=== PATIENT | female | born 1930 | race Caucasian/White ===

== ENCOUNTER 2018-02-14 14:36 | Inpatient (IN) | payer MEDICARE, BC ==
[~2018-02-14] VITALS: Ht 160 cm; Wt 67.6 kg
[~2018-02-14 14:36] MED LIST: AMITRIPTYLINE H25 M1 PO; AMOXICILLIN 8751 TAB PO; ASPIRIN 81M81 MG/TA2 PO; CALTRATE-600 W600 MG PO; DITROPAN 5MG TAB5 MG PO; ELAVIL10 MG PO; FISH OIL 1000MG1 CAP PO; FORTICAL NS; FORTICAL200 IU/ACT NS; GLUCOSAMINE PO; LEVOXYL0.075 MG PO; NATURAL E400 IU PO; NEURONTIN300 MG/CAP PO; NEXIUM 40MG40 MG PO; NEXIUM40 MG PO; NORCO 325 MG-51 TAB PO; OSCAL 500 TAB500 MG PO; PRIL40 PO; RECLAST5 MG/100 M IV; REGLAN 10MG10 MG/TAB PO; STOOL SOFTENER100 M2 PO; SYNTHROID 0.0.025 MG PO; TOPROL XL 50MG50 MG PO; TYLENOL 8 HR PO; VITAMIN B 6 PO; VITAMIN B-6100 MG PO; VITAMIN D1000 IU PO; VITAMIN E800 I1 PO; [UNRECOGNIZED DRUG - OTHER] PO
[2018-02-14 14:50] VITALS: BP 134/73; PULSE 72; TEMP 97.8
[2018-02-14] MEDS ORDERED: VITAMIN C500 MG PO (15:21)
[2018-02-14] MEDS ORDERED: DULCOLAX STOOL100 MG PO (15:22)
[2018-02-14 17:25] VITALS: BP 131/73; PULSE 81; TEMP 97.9
[2018-02-14 19:49] VITALS: BP 157/82; PULSE 72; TEMP 98
[2018-02-15] VITALS (10 sets, daily range): BP systolic 91–160; BP diastolic 43–92; PULSE 61–85; TEMP 97.4–98
[2018-02-15 05:59] LABS: BASO % 0.7 % (0.0-2.0); EOS # 0.1 (0.0-0.7); EOS % 1.1 % (0-4.0); GRAN # 2.2 (1.4-6.5); GRAN % 50.2 % (42.2-75.2); HEMOGLOBIN 12.2 g/dl (12.5-16.0); LYMPH # 1.7 (1.2-3.4); LYMPH % 37.2 % (20.0-51.0); MEAN CELL VOLUME 94 fl (80.0-100.0); MEAN CORPUSCULAR HEMOGLOBIN 31 pg (27.0-31.0); MEAN CORPUSCULAR HGB CONC 34 g/dl (33.0-37.0); MEAN PLATELET VOLUME 10.5 fl (7.4-10.4); MONO # 0.5 (0.1-0.6); MONO % 10.6 % (1.7-9.3); PLATELET COUNT 224 K/mm3 (130-400); RED BLOOD COUNT 3.88 M/mm3 (4.10-5.30); REDCELL DISTRIBUTION WIDTH-CV 12.7 % (11.5-14.5)
[2018-02-15 06:00] LABS: HEMATOCRIT 36.4 % (37.0-47.0)
[2018-02-15 06:12] LABS: ALBUMIN 2.6 gm/dL (3.5-5.0); BILIRUBIN,TOTAL 0.3 mg/dL (0.0-1.0); CALCIUM 8.4 mg/dL (8.4-10.2); CREATININE, serum 0.59 mg/dL (0.52-1.25); POTASSIUM 3.4 mmol/L (3.4-5.0)
[2018-02-16 03:43] VITALS: BP 142/70; PULSE 86; TEMP 98
[2018-02-16 06:45] LABS: HEMATOCRIT 37.9 % (37.0-47.0); HEMOGLOBIN 12.8 g/dl (12.5-16.0); MEAN CELL VOLUME 94 fl (80.0-100.0); MEAN CORPUSCULAR HEMOGLOBIN 32 pg (27.0-31.0); MEAN CORPUSCULAR HGB CONC 34 g/dl (33.0-37.0); MEAN PLATELET VOLUME 11.2 fl (7.4-10.4); PLATELET COUNT 235 K/mm3 (130-400); RED BLOOD COUNT 4.03 M/mm3 (4.10-5.30); REDCELL DISTRIBUTION WIDTH-CV 12.9 % (11.5-14.5)
[2018-02-16 07:19] VITALS: BP 123/72; PULSE 87; TEMP 98.7
[2018-02-16 08:07] LABS: CREATININE, serum 0.61 mg/dL (0.52-1.25); POTASSIUM 3.1 mmol/L (3.4-5.0)
[2018-02-16 12:07] VITALS: BP 153/86; PULSE 87
[2018-02-16 15:39] VITALS: BP 144/73; PULSE 89; TEMP 98.2
[2018-02-16 23:19] VITALS: BP 164/77; PULSE 85; TEMP 98.9
[2018-02-17 04:24] VITALS: BP 155/72; PULSE 74; TEMP 97.7
[2018-02-17 09:00] VITALS: BP 166/81; PULSE 79; TEMP 97.4
[2018-02-17 13:00] VITALS: BP 152/87; PULSE 74; TEMP 97.7
[2018-02-17 16:55] VITALS: BP 167/81; PULSE 76; TEMP 97.5
[2018-02-17 20:00] VITALS: BP 167/76; PULSE 77; TEMP 97.8
[2018-02-18] VITALS: BP 154/83; PULSE 81; TEMP 97.7
[2018-02-18 04:00] VITALS: BP 141/76; PULSE 86; TEMP 98.1
[2018-02-18 08:39] VITALS: BP 153/86; PULSE 79; TEMP 97.4
[2018-02-18 13:00] VITALS: BP 154/80; PULSE 79; TEMP 97.6
[2018-02-18 16:42] VITALS: BP 155/83; PULSE 83; TEMP 97.7
[2018-02-18 20:30] VITALS: BP 164/79; PULSE 82; TEMP 98.6
[2018-02-19 04:24] VITALS: BP 177/82; PULSE 78; TEMP 98.1
[2018-02-19 08:28] VITALS: BP 165/80; PULSE 81; TEMP 98
[2018-02-19 12:31] VITALS: BP 156/86; PULSE 72; TEMP 97.4
[2018-02-19 16:25] VITALS: BP 176/86; PULSE 77; TEMP 97.6
[2018-02-20 01:30] VITALS: BP 158/88; PULSE 85; TEMP 98.1
[2018-02-20 03:43] VITALS: BP 160/85; PULSE 86; TEMP 97.9
[2018-02-20 07:45] VITALS: BP 165/88; PULSE 95; TEMP 97.8
== END 2018-02-20 10:08 | disposition swing bed (61) | DRG 330 ==
LOC: SURG 14:36 → MEDICAL 14:36 → SURG 02-15 15:53
PROVIDERS: Surgery
PROC: 0DQ80ZZ Repair Small Intestine, Open Approach (ICD-10-PCS; 2018-02-15)
PROC: 0WJP0ZZ Inspection of Gastrointestinal Tract, Open Approach (ICD-10-PCS; 2018-02-15)
PROC: 0DN80ZZ Release Small Intestine, Open Approach (ICD-10-PCS; principal; 2018-02-15 16:00)
DX: C17.8 Malignant neoplasm of overlapping sites of small intestine (principal); C78.7 Secondary malignant neoplasm of liver and intrahepatic bile duct; K56.51 Intestinal adhesions [bands], with partial obstruction; K91.71 Accidental puncture and laceration of a digestive system organ or structure during a digestive system procedure; Z66 Do not resuscitate; Z85.060 Personal history of malignant carcinoid tumor of small intestine
CPT/HCPCS: A4314; C1751; J0690; J2250; J2405; J2543; J2550; J2704; J3010; J3480; J7120; Q9967